=== PATIENT | female | born 1955 | race Two or more races ===

== ENCOUNTER 2017-07-19 10:17 | Outpatient (CLI) | payer OTHER ==
[~2017-07-19 10:17] MED LIST: FAMOTIDINE20 MG PO; LEVOTHYROXINE175 MCG PO
== END 2017-07-19 10:25 | disposition home or self-care (01) ==
LOC: RAD 501 10:17
DX: S82.231 Displaced oblique fracture of shaft of right tibia (principal)

== ENCOUNTER 2020-08-24 10:00 | Outpatient (CLI) | payer OTHER | END 2020-08-24 10:36 | disposition home or self-care (01) | LOC: SONOGRAMA 10:00 | PROVIDERS: ATTEND Pathology Anatomic Pathology & Clinical Pathology | DX: R59.0 Localized enlarged lymph nodes (principal); N63.0 Unspecified lump in unspecified breast; R92.0 Mammographic microcalcification found on diagnostic imaging of breast ==